=== PATIENT | female | born 1955 | race Caucasian/White ===

== ENCOUNTER 2016-07-14 08:56 | Outpatient (CLI) | payer OTHER ==
[2013-06-01 13:23] VITALS: BP 168/73
== END 2016-07-14 08:57 ==
LOC: LAB 08:56
PROVIDERS: ATTEND Family Medicine
DX: R73.9 Hyperglycemia, unspecified (principal)
CPT/HCPCS: 36415; 83036

== ENCOUNTER 2018-04-26 09:07 | Outpatient (CLI) | payer OTHER ==
[2013-06-01 13:23] VITALS: BP 168/73
[2018-04-26 10:07] LABS: eGFR (Non-African) > 60
--- NOTE | 2018-05-03 08:45 | Diagnostic Imaging Report ---
TORIBIO MUHAMMAD [facility] [address] [facility].[address] [id number] Report Submission Date: May 03, 2018 8:23:41 AM MONORAIL OPERATOR Patient Study Name: RNEE RAMIRES Date: May 03, 2018 12:00:00 AM MONORAIL OPERATOR Modality Type: DEXA\OT Gender: F Description: DEXA : 51 Institution: [facility] Physician: TORIBIO MUHAMMAD Examination: Bone density History: Assess bone mineralization Comparison exams: None available Technique: DEXA protocol Findings: Average bone mineral density from L1 through L4: 0.918 grams cm2. T score: -2.2 Average bone mineral density of the left hip: 0.807 grams cm2. T score: -1.6 Average bone mineral density of the right hip: 0.802 grams cm2. T score: -1.6 Impression: Lumbar spine and bilateral hip osteopenia. Electronically signed on May 03, 2018 8:23:41 AM MONORAIL OPERATOR by: Ramos SIMENTAL
== END 2018-04-26 09:10 ==
LOC: RAD 09:07
PROVIDERS: ATTEND Family Medicine
DX: M81.0 Age-related osteoporosis without current pathological fracture (principal); E78.2 Mixed hyperlipidemia; E55.9 Vitamin D deficiency, unspecified; G40.909 Epilepsy, unspecified, not intractable, without status epilepticus
CPT/HCPCS: 36415; 77080; 80053; 80061; 80156; 80185; 82306

== ENCOUNTER 2018-08-03 09:22 | Outpatient (CLI) | payer OTHER ==
[2013-06-01 13:23] VITALS: BP 168/73
== END 2018-08-03 09:45 ==
LOC: LAB 09:22
PROVIDERS: ATTEND Family Medicine
DX: E55.9 Vitamin D deficiency, unspecified (principal)
CPT/HCPCS: 36415; 82306

== ENCOUNTER 2018-12-26 09:22 | Outpatient (CLI) | payer OTHER ==
[2013-06-01 13:23] VITALS: BP 168/73
== END 2018-12-26 09:24 ==
LOC: LAB 09:22
PROVIDERS: ATTEND Family Medicine
DX: E55.9 Vitamin D deficiency, unspecified (principal); R73.9 Hyperglycemia, unspecified
CPT/HCPCS: 36415; 82306; 83036

== ENCOUNTER 2019-01-09 10:57 | Outpatient (CLI) | payer OTHER ==
[2013-06-01 13:23] VITALS: BP 168/73
--- NOTE | 2019-01-10 16:39 | Diagnostic Imaging Report ---
LAKIA FALCON [facility] [address] [facility] [address] [place] [address]. [id number] Report Submission Date: Jan 09, 2019 12:55:28 PM CDT Patient Study Name: RENE RAMIRES Date: Jan 09, 2019 11:06:09 AM CDT Modality Type: US Gender: F Description: US DUPLEX ARTERIAL LE UNILAT : 51 Institution: [facility] Physician: LAKIA FALCON Exam: Left lower extremity arterial Doppler study. History: Left leg ulceration. Doppler interrogation and color Doppler imaging of the arterial structures in the left lower extremity are submitted. Monophasic waveforms in the left posterior tibial artery is noted. Biphasic waveforms at remaining levels are noted. No frankly elevated velocities are identified. Impression:Moderate atherosclerotic disease in the posterior tibial artery is noted. Mild atherosclerotic disease at remaining arterial structures. Electronically signed on Jan 09, 2019 12:55:28 PM CDT by: Dion SIMENTAL
== END 2019-01-09 11:00 ==
LOC: RAD 10:57
PROVIDERS: ATTEND Podiatrist Foot & Ankle Surgery
DX: I70.212 Atherosclerosis of native arteries of extremities with intermittent claudication, left leg (principal)
CPT/HCPCS: 93926